=== PATIENT | female | born 1985 | race Asian ===

== ENCOUNTER 2020-10-20 09:47 | Emergency (ER) | payer OTHER, SELFPAY ==
[~2020-10-20] VITALS: Ht 149.9 cm; Wt 45.4 kg
[~2020-10-20 09:47] MED LIST: AMPHETAMINE SAL30 MG PO; CIPROFLOXACIN250 M2 PO; FAMOTIDINE40 MG PO; LAC PO
[2020-10-20 09:48] VITALS: Ht 149.9 cm; Wt 45.4 kg
[2020-10-20 10:34] VITALS: BP 101/60
== END 2020-10-20 10:35 | disposition home or self-care (01) ==
LOC: ED 09:47
DX: U07.1 COVID-19 (principal); R19.7 Diarrhea, unspecified; Z88.0 Allergy status to penicillin; Z88.1 Allergy status to other antibiotic agents
CPT/HCPCS: U0003